=== PATIENT | female | born 1985 | race African-American/Black ===

== ENCOUNTER 2017-01-19 17:11 | Emergency (ER) | payer OTHER ==
[2017-01-19 17:20] VITALS: BP 110/69; PULSE 63; TEMP 97.8; BMI 25.0
--- NOTE | 2017-01-19 18:15 | PDOC ---
History of Present Illness - General Chief Complaint: Lightheaded Stated Complaint: WEAKNESS Time Seen by Provider: 01/19/17 17:35 History Source: Patient Exam Limitations: No Limitations - History of Present Illness Initial Comments: 01/19/17 18:21 My chief complaint: Intermittent headache, weakness, lightheadedness times one week History of present illness: Patient is a 31-year-old female with a history of fibroids and myomectomy 03/27 today complaining of intermittent temporal headache times one week with lightheadedness and generalized weakness intermittently. Patient reports having a headache earlier today for which she took acetaminophen at 12 noon, denies having headache presently. Patient reports feeling lightheaded when she stands up from a sitting or lying position intermittently times one week. Patient denies any fever, sore throat, cough, nausea vomiting or diarrhea. Patient does report having nasal congestion that was worse 2 weeks ago is slightly less presently with clear rhinorrhea. She denies any recent travel or any sick contacts. Patient reports that she works nights and comes home and sleeps for only 4 hours which is usual for her. 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 Patient denies any palpitations or any shortness of breath. She reports that her menstrual cycle is not heavy like before and she just finished it yesterday was for 3 days only. Patient to think that she is due to having her menstrual cycle is not on control. 01/19/17 18:28 01/19/17 18:29 01/19/17 18:32 Timing/Duration: 1 week (intermittent lightheadedness, headache b/l frontal, weakness intermittent) Severity: mild Associated Symptoms: reports: headaches (intermittent headache temporal, none now ), other (nasal congestion, weakness, lightheadedness) Past History - Past Medical History Allergies/Adverse Reactions: Allergies Allergy/AdvReac Type Severity Reaction Status Date / Time oxycodone HCl Allergy Mild Itching Verified 01/19/17 17:21 [From Roxicodone] mushroom Allergy Verified 01/19/17 17:21 Home Medications: Ambulatory Orders Cholecalciferol (Vitamin D3) [Vitamin D] 1,000 unit PO DAILY 04/02/16 Multivit with Iron-Minerals [Compete] 1 each PO DAILY 04/02/16 Fexofenadine HCl [Nicole Allergy] 180 mg PO DAILY #10 tablet 01/19/17 Fluticasone Prop 0.05% Nasal [Flonase] 2 spray NS DAILY #1 spraybtl 01/19/17 Anemia: No Asthma: No Cancer: No Cardiac Disorders: No CVA: No COPD: No CHF: No Dementia: No Diabetes: No GI Disorders: No Disorders: No HTN: No Hypercholesterolemia: No Liver Disease: No Seizures: No Thyroid Disease: No Other medical history: DENIES - Immunization History Immunization Up to Date: Yes - Psycho/Social/Smoking Cessation Hx Anxiety: No Suicidal Ideation: No Smoking History: Never smoked Have you smoked in the past 12 months: No Hx Alcohol Use: No Drug/Substance Use Hx: No Substance Use Type: None Hx Substance Use Treatment: No Review of Systems - Review of Systems Able to Perform ROS?: Yes Constitutional: Yes: Weakness (intermittent ) HEENTM: Yes: Nose Congestion Respiratory: No: Symptoms reported Cardiac (ROS): Yes: Lightheadedness ABD/GI: No: Symptoms Reported : No: Symptoms Reported Musculoskeletal: No: Symptoms Reported Integumentary: No: Symptoms Reported Neurological: Yes: Headache (intermittent temporal b/l headache daily for one week ) *Physical Exam - Vital Signs Last Vital Signs Temp Pulse Resp BP Pulse Ox 97.8 F 63 16 110/69 100 01/19/17 17:12 01/19/17 17:12 01/19/17 17:12 01/19/17 17:12 01/19/17 17:12 - Physical Exam General Appearance: Yes: Appropriately Dressed HEENT: positive: EOMI, CAMILO, Nasal Congestion (b/l edema of superior turbinates rt. greater than left ). negative: Pharyngeal Erythema, Tonsillar Exudate, Tonsillar Erythema Neck: negative: Lymphadenopathy (R), Lymphadenopathy (L) Respiratory/Chest: positive: Lungs Clear, Normal Breath Sounds. negative: Chest Tender, Respiratory Distress Cardiovascular: positive: Regular Rhythm, Regular Rate, S1, S2 Gastrointestinal/Abdominal: positive: Normal Bowel Sounds, Soft. 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 negative: Numbness, Sensory Deficit ED Treatment Course - LABORATORY CBC & Chemistry Diagram: 01/19/17 18:00 01/19/17 18:00 Medical Decision Making - Medical Decision Making 01/19/17 18:32 Patient is a 31-year-old female with a history of fibroids and myomectomy 03/27 with normocytic anemia here today complaining of intermittent temporal headache times one week with lightheadedness and generalized weakness intermittently. Patient reports having a headache earlier today for which she took acetaminophen at 12 noon, denies having headache presently. Patient reports feeling lightheaded when she stands up from a sitting or lying position intermittently times one week. Patient denies any fever, sore throat, cough, nausea vomiting or diarrhea. Patient does report having nasal congestion that was worse 2 weeks ago is slightly less presently with clear rhinorrhea. She denies any recent travel or any sick contacts. Patient reports that she works nights and comes home and sleeps for only 4 hours which is usual for her. 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 Patient denies any palpitations or any shortness of breath. She reports that her menstrual cycle is not heavy like before and she just finished it yesterday was for 3 days only. Patient to think that she is due to having her menstrual cycle is not on control. 01/19/17 18:28 01/19/17 18:34 r/o worsening anemia Nasal Congestion PLAN: cbc with diff bmp urine hcg 01/19/17 18:36 01/19/17 18:51 Laboratory Tests 01/19/17 01/19/17 01/19/17 18:00 18:00 18:00 WBC 3.0 L D RBC 4.43 Hgb 12.1 D Hct 38.1 D MCV 85.9 MCHC 31.9 L RDW 13.4 Plt Count 154 D MPV 10.6 Neutrophils % 39.2 L Lymphocytes % 43.8 H Monocytes % 8.2 Eosinophils % 7.8 H Basophils % 1.0 Sodium 141 Potassium 4.0 Chloride 104 Carbon Dioxide 28 Anion Gap 9 BUN 13 D Creatinine 0.7 Random Glucose 79 Calcium 9.3 Urine HCG, Qual Negative 01/19/17 18:56 leukopenia has been chronic will discharge to home on nicole 180 mg daily for 10 days flonase 2 sprays each nostril for 10 days 01/19/17 23:10 01/19/17 23:11 *DC/Admit/Observation/Transfer Diagnosis at time of Disposition: Nasal congestion Headache Qualifiers: Headache type: unspecified Headache chronicity pattern: acute headache Intractability: not intractable Qualified Code(s): R51 - Headache - Discharge Dispostion Disposition: HOME Condition at time of disposition: Stable - Prescriptions Prescriptions: Fexofenadine HCl [Nicole Allergy] 180 mg PO DAILY #10 tablet Fluticasone Prop 0.05% Nasal [Flonase] 2 spray NS DAILY #1 spraybtl - Referrals Referrals: Hilda Seo MD [Primary Care Provider] - Alvarez Shirley MD [Staff Physician] - - Patient Instructions Additional Instructions: follow up With ear nose and throat Dr. Shirley if symptoms persist More rest and follow-up with your primary care provider next week Return to emergency room if symptoms worsen or new symptoms develop Patient voiced understanding of discharge instructions and all questions were answered
[2017-01-19 18:20] LABS: EOSINOPHIL 7.8 % (0-4.5); MCH 27.4 pg (25.7-33.7); MCHC 31.9 g/dl (32.0-36.0); MEAN CELL VOLUME 85.9 fl (80-96); MEAN PLT VOLUME 10.6 fl (7.5-11.1); NEUTROPHILS 39.2 % (42.8-82.8); PLATELET COUNT 154 K/MM3 (134-434); RDW 13.4 % (11.6-15.6)
[2017-01-19 18:40] LABS: CALCIUM 9.3 mg/dL (8.5-10.1); COCKROFT - GAULT 132.1835; CREATININE 0.7 mg/dL (0.55-1.02)
[2017-01-19 18:53] LABS: PLATELET ESTIMATE ADEQUATE (NORMAL)
== END 2017-01-19 19:11 | disposition home or self-care (01) ==
LOC: JERFT 17:11
DX: R09.89 Other specified symptoms and signs involving the circulatory and respiratory systems (principal); R51 Headache
CPT/HCPCS: 36415; 80048; 84703; 85025; 99281-25

== ENCOUNTER 2017-08-17 18:17 | Emergency (ER) | payer OTHER ==
[2017-08-17 18:23] VITALS: BP 99/63; PULSE 77; TEMP 98.1; BMI 26.2
--- NOTE | 2017-08-17 19:04 | PDOC ---
History of Present Illness - General Chief Complaint: Cold Symptoms Stated Complaint: 19 wks preg COUGHING Time Seen by Provider: 08/17/17 18:39 - History of Present Illness Initial Comments: 08/17/17 18:50 CHIEF COMPLAINT: cough, fever HISTORY OF PRESENT ILLNESS: 31 yo 19 week F with no significant PMH presents to fast track with cough and fever x 2 days. Patient denies sore throat , vomiting, diarrhea, abdominal pain, vaginal bleeding. PAST MEDICAL HISTORY: Denies past medical history FAMILY HISTORY: Denies SOCIAL HISTORY: Denies tobacco, alcohol, illicit drug use. SURGICAL HISTORY: Denies ALLERGIES: oxycodone, mushroom REVIEW OF SYSTEMS General/Constitutional: Denies fever or chills. Denies weakness. HEENT: Denies change in vision. Denies ear pain or discharge. Denies sore throat. Cardiovascular: Denies chest pain or shortness of breath. Respiratory: "I'm coughing a lot." Denies wheezing, or hemoptysis. Gastrointestinal: Denies nausea, vomiting, diarrhea. Genitourinary: Denies dysuria, frequency, or change in urination. Musculoskeletal: Denies joint or muscle swelling or pain. Denies neck or back pain. Skin and breasts: Denies rash or easy bruising. PHYSICAL EXAM General Appearance: Well-appearing, appropriately dressed. No apparent distress , no intoxication. HEENT: EOMI, PERRLA, normal ENT inspection, normal voice, TMs normal, pharynx normal. No conjunctival pallor. No photophobia, scleral icterus. Neck: Supple. Trachea midline. No tenderness, rigidity, carotid bruit, stridor , lymphadenopathy, or thyromegaly. Respiratory/Chest: Lungs CTAB. No shortness of breath, chest tenderness, respiratory distress, accessory muscle use. No crackles, rales, rhonchi, stridor , wheezing, dullness Cardiovascular: RRR. S1, S2. No JVD, murmur, bradycardia, tachycardia. Gastrointestinal/Abdominal: Normal bowel sounds. Abdomen soft, non-distended. No tenderness or rebound tenderness. No organomegaly, pulsatile mass, guarding , hernia, hepatomegaly, splenomegaly. Musculoskeletal/Extremities: Normal inspection. FROM of all extremities, normal capillary refill. Pelvis Stable. No CVA tenderness. No tenderness to extremities, pedal edema, swelling, erythema or deformity. Integumentary: Appropriate color, dry, warm. 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 Fully oriented, alert. Appropriate mood/affect. Motor strength 5/5. No appreciable EOM palsy, facial droop or sensory deficit. Past History - Past Medical History Allergies/Adverse Reactions: Allergies Allergy/AdvReac Type Severity Reaction Status Date / Time oxycodone HCl Allergy Mild Itching Verified 08/17/17 18:18 [From Roxicodone] mushroom Allergy Verified 08/17/17 18:18 Home Medications: Ambulatory Orders Multivit with Iron,Minerals [Compete] 1 each PO DAILY 04/02/16 Anemia: No Asthma: No Cancer: No Cardiac Disorders: No CVA: No COPD: No CHF: No Dementia: No Diabetes: No GI Disorders: No Disorders: No HTN: No Hypercholesterolemia: No Liver Disease: No Seizures: No Thyroid Disease: No - Immunization History Immunization Up to Date: Yes - Suicide/Smoking/Psychosocial Hx Smoking History: Never smoked Have you smoked in the past 12 months: No Information on smoking cessation initiated: No Hx Alcohol Use: No Drug/Substance Use Hx: No Substance Use Type: None Hx Substance Use Treatment: No *Physical Exam - Vital Signs Last Vital Signs Temp Pulse Resp BP Pulse Ox 98.1 F 77 18 99/63 100 08/17/17 18:19 08/17/17 18:19 08/17/17 18:19 08/17/17 18:19 08/17/17 18:19 Medical Decision Making - Medical Decision Making 08/17/17 19:04 31 yo 19 week F with no significant PMH presents to fast track with cough and fever x 2 days. -flu swab *DC/Admit/Observation/Transfer Diagnosis at time of Disposition: Viral syndrome - Discharge Dispostion Disposition: HOME Condition at time of disposition: Stable Admit: No - Referrals Referrals: Aaron Jolley MD [Primary Care Provider] - - Patient Instructions Printed Discharge Instructions: DI for Viral Upper Respiratory Infection -- Adult Additional Instructions: Please continue to take Tylenol and Robitussin for your symptoms. You may also try taking Vitamin C supplements to help increase your recovery time. Be sure to drink plenty of fluids and get lots of rest!! If you develop any vaginal bleeding or unusual discharge, abdominal pain, or any new or worsening symptoms , please return to the ER. - Post Discharge Activity Forms/Work/School Notes: Back to Work
== END 2017-08-17 20:05 | disposition home or self-care (01) ==
LOC: JERFT 18:17
DX: O99.89 Other specified diseases and conditions complicating pregnancy, childbirth and the puerperium (principal); J06.9 Acute upper respiratory infection, unspecified; Z3A.19 19 weeks gestation of pregnancy
CPT/HCPCS: 87804; 99281-25

== ENCOUNTER 2017-12-16 12:00 | Inpatient (IN) | payer OTHER ==
[2017-12-26] MEDS ORDERED: CITRIC ACID/SODIUM CITRATE 30 ML UNIT-DOSE CUP PO ONE (09:00)
[2017-12-26] MEDS ORDERED: ELECTROLYTE-148 SOLN 1,000 ML IV ONE (09:00)
[2017-12-26 09:18] VITALS: BMI 28.3
[2017-12-26] MEDS ORDERED: ELECTROLYTE-148 SOLN 1,000 ML IV SCH ×2 (10:00→11:30)
[2017-12-26] MEDS ORDERED: ceFAZolin SODIUM 1 GM VIAL ONE (10:07)
[2017-12-26] MEDS ORDERED: morphine SULFATE/Preservative Free 0.5 MG/ML (1cc Syringe) ONE (10:07)
[2017-12-26] MEDS ORDERED: ePHEDrine SULFATE 50 MG/1 ML AMPULE ONE (10:07)
[2017-12-26] MEDS ORDERED: OXYTOCIN 20 UNITS in 0.9% NS 40 UNIT/2,000 ML INFUS.BAG IV ONE (10:13)
--- NOTE | 2017-12-26 10:32 | HP ---
Past Medical History - Primary Care Physician PCP:: Selina Kunz - Admission Chief Complaint: Previous Myomectomy History of Present Illness: 32yo EDC 01/08/18 ega 38 week with previous myomectomy for primary section no ROM bleeding + afm no HAS History Source: Patient Limitations to Obtaining History: No Limitations - Past Medical History ...: 2 ...Para: 0 ...Term: 0 ...: 0 ...Spon : 1 ...Induced : 0 ...Multiple Gestation: 0 ...LMP: 04/03/17 ... Weeks Gestation by Dates: 38.1 ...EDC by Dates: 01/08/18 ...EDC by Sono: 12/26/17 - Past Surgical History Hx Myomectomy: No Hx Transabdominal Cerclage: No Additional Surgical History: Abdominal myomectomy - Smoking History Smoking history: Never smoked Have you smoked in the past 12 months: No - Alcohol/Substance Use Hx Alcohol Use: No History of Substance Use: reports: None - Social History Usual Living Arrangement: Yes: With Spouse Home Medications - Allergies Allergies/Adverse Reactions: Allergies Allergy/AdvReac Type Severity Reaction Status Date / Time oxycodone HCl Allergy Mild Itching Verified 12/26/17 09:01 [From Roxicodone] mushroom Allergy Verified 12/26/17 09:01 - Home Medications Home Medications: Ambulatory Orders Ferrous Sulfate 325 mg PO DAILY 12/26/17 Vitamins (Sjr) - 1 tab PO DAILY 12/26/17 Review of Systems - Review of Systems Constitutional: reports: No Symptoms Eyes: reports: No Symptoms HENT: reports: No Symptoms Neck: reports: No Symptoms Cardiovascular: reports: No Symptoms Respiratory: reports: No Symptoms Gastrointestinal: reports: No Symptoms Genitourinary: reports: No Symptoms Breasts: reports: No Symptoms Reported Musculoskeletal: reports: No Symptoms Integumentary: reports: No Symptoms Neurological: reports: No Symptoms Endocrine: reports: No Symptoms Hematology/Lymphatic: reports: No Symptoms Psychiatric: reports: No Symptoms Physical Exam - Maternity Vital Signs: Vital Signs Temperature 98.2 F 12/26/17 08:30 Pulse Rate 79 12/26/17 08:30 Respiratory Rate 20 12/26/17 08:30 Blood Pressure 107/70 12/26/17 08:30 O2 Sat by Pulse Oximetry (%) Constitutional: Yes: Well Nourished, No Distress Cardiovascular: Yes: WNL Lungs: Clear to auscultation Breast(s): Yes: WNL - Abdominal Exam/OB Fundal Height: 38 Number of Fetuses: Single Presentation: Vertex Contractions: No Monitor Mode: External Category: I Accelerations: Non-Uniform Decelerations: None - Vaginal Exam/OB Vaginal Bleediing: No Dilatation (cm): closed Amniotic Membrane Status: Intact Presentation: Vertex/Position - Physical Exam Musculoskeletal: Yes: WNL Psychiatric: Yes: WNL, Alert, Oriented Hemorrhage Risk Assessment - Risk Factors Medium Risk Factors: Yes: Prior , uterine surgery,or multiple laparotomies Risk Score: 1 Risk Level: Medium Risk Problem List - Problems (1) History of myomectomy Code(s): Z98.890 - OTHER SPECIFIED POSTPROCEDURAL STATES (2) 38 weeks gestation of Code(s): Z3A.38 - 38 WEEKS GESTATION OF Assessment/Plan Previous myomectomy IUP at 38 week Cat 1 Plan Section
[2017-12-26] MEDS ORDERED: DEXAMETHASONE SOD PHOSPHATE 4 MG/1 ML VIAL ONE (10:39)
[2017-12-26] MEDS ORDERED: KETOROLAC TROMETHAMINE 30 MG/1 ML VIAL ONE (10:39)
[2017-12-26] MEDS ORDERED: OXYTOCIN 10 UNITS/ML VIAL ONE ×2 (10:42→10:46)
[2017-12-26] MEDS ORDERED: MIDAZOLAM HCL 2 MG/2 ML SINGLE DOSE VIAL ONE (10:52)
[2017-12-26] MEDS ORDERED: TUBERCULIN PPD 5 TU/0.1ML SYRINGE (IN PATIENT USE ONLY) ID ONE (11:00)
[2017-12-26] MEDS ORDERED: METHYLERGONOVINE MALEATE 0.2 MG/1 ML AMP IM PRN (11:23)
--- NOTE | 2017-12-26 11:23 | OP ---
Operative Note - Note: Operative Date: 12/26/17 Pre-Operative Diagnosis: Previous Myomectomy. IUP at 40 weeks by usg Operation: Primary low transverse Section Findings: live female infant Post-Operative Diagnosis: Same as Pre-op Surgeon: Selina Kunz Home Health Nurse: Sid Stark Anesthesia: Spinal Specimens Removed: placenta Estimated Blood Loss (mls): 600 Operative Report Dictated: Yes
[2017-12-26 11:30] LABS: VENOUS PH 7.41 (7.32-7.42)
[2017-12-26] MEDS ORDERED: OXYTOCIN 20 UNITS in 0.9% NS 20 UNIT/1,000 ML INFUS.BAG IV SCH (11:30)
--- NOTE | 2017-12-26 11:30 | OP ---
DATE OF OPERATION: 12/26/2017 PREOPERATIVE DIAGNOSIS: Previous myomectomy at 38 weeks. OPERATION: Low transverse section. POSTOPERATIVE DIAGNOSIS: Live female , previous myomectomy at 38 weeks. SURGEON: Anselmo Trinh MD EXPLOSIVES DETONATOR: SILVIA Quiroga. unavailable. ANESTHESIA: Spinal. ANESTHESIOLOGIST: Anabela Mendoza MD ESTIMATED BLOOD LOSS: 600 mL. DESCRIPTION OF PROCEDURE: The patient was taken to the operating room and placed in supine position, prepped and draped in the usual sterile fashion after spinal anesthesia and Palma catheter had been inserted. Previous scar was then removed with a scalpel using a Pfannenstiel skin incision. Cautery was then used to go through layers of the abdominal wall to the level of the fascia. Fascia was cut in the midline. Cautery was then used to open the fascia in a smiling fashion. Kochers were then used to bluntly and sharply dissect the rectus muscles off the fascia. Muscles were split in the midline, and peritoneal cavity was then entered and carried upward and downward. Bladder retractor was then placed, and scalpel was then used to make a low transverse uterine incision. Incision was carried upward using bandage scissors. A live female infant was delivered in OT position. Nose and mouth suction performed. Shoulders were delivered without difficulty. Cord was clamped and cut. Cord blood obtained. Cord pH obtained. The was handed to the signal tower director. Placenta was manually extracted from the uterus. Uterus was exteriorized and cleaned with clean laparotomy pads. Uterine incision then closed using 0 Biosyn suture 1st layer continuous and locking, 2nd layer imbricating the 1st layer. Hemostasis achieved using [id number] sutures. Uterus interiorized. Tubes and ovaries noted to be normal. Abdominal sweep done. Abdominal cavity cleaned with clean lap pads. Peritoneum closed using 0 Biosyn suture. Fascia was then closed using 0 Vicryl suture in 2 parts. Muscle was approximated using 0 Vicryl suture. The subcutaneous was then closed using 0 Vicryl suture. The skin was then closed using 3-0 Vicryl in subcuticular fashion. The wound was washed and dressed. The patient tolerated the procedure well. Steri-Strips placed. ANSELMO TRINH M.D. MIKE/[id number] MTDD
[2017-12-26 11:31] LABS: VENOUS PC02 41.9 mmHg (38-52); VENOUS PO2 32.6 mmHg (28-48)
[2017-12-26] MEDS ORDERED: ONDANSETRON 4 MG/2 ML VIAL IVPUSH PRN (11:32)
[2017-12-26] MEDS ORDERED: IBUPROFEN 800 MG/8 ML IJ IVPB ONE (13:00)
[2017-12-26] MEDS: IBUPROFEN 800 MG/8 ML IJ IVPB PRN (13:05)
[2017-12-26] MEDS ORDERED: oxyCODONE HCL 5 MG TABLET PO PRN ×2 (13:29→13:30)
[2017-12-26 21:41] LABS: ARTERIAL BLOOD GAS PCO2 50.9 mmHg (35-45); ARTERIAL BLOOD GAS pH 7.33 (7.35-7.45)
[2017-12-26 21:42] LABS: ARTERIAL BLOOD GAS BASE EXCESS -0.4 meq/l (-2-2)
[2017-12-26 21:44] LABS: ARTERIAL BLD GAS O2 SATURATION 38.3 % (90-98.9); ARTERIAL BLOOD GAS PO2 19.9 mmHg (80-100)
[2017-12-27] MEDS: IBUPROFEN 800 MG/8 ML IJ IVPB PRN (03:43)
[2017-12-27 07:32] LABS: BASO % 0.2 % (0-2.0); EOS % 0.8 % (0-4.5); HEMATOCRIT 30.1 % (32.4-45.2); HEMOGLOBIN 10.3 GM/dL (10.7-15.3); LYMPH % 14.2 % (8-40); MCH 30.1 pg (25.7-33.7); MCHC 34.3 g/dl (32.0-36.0); MEAN CELL VOLUME 87.8 fl (80-96); MEAN PLT VOLUME 9.8 fl (7.5-11.1); MONO % 5.3 % (3.8-10.2); NEUT % 79.5 % (42.8-82.8); PLATELET COUNT 136 K/MM3 (134-434); RBC 3.43 M/mm3 (3.60-5.2); RDW 13.6 % (11.6-15.6); WHITE BLOOD COUNT 7.3 K/mm3 (4.0-10.0)
--- NOTE | 2017-12-27 08:29 | PN ---
Progress Note (short form) - Note Progress Note: Anesthesia postop note 32 y/o F s/p spinal anesthesia/duramorph for section POD#1, vss, aaox3, ambulated earlier, pain fairly well controlled. No anesthesia complications.
[2017-12-27] MEDS: HYDROmorphone HCL 2 MG TABLET PO PRN ×3 (09:00→21:45)
[2017-12-27] MEDS: SIMETHICONE 80 MG TAB.CHEW (FP) PO PRN ×3 (09:00→21:44)
[2017-12-27] MEDS ORDERED: DIPHTH,PERTUSS(ACELL),TET 0.5 ML DISP.SYRIN IM ONE (10:00)
[2017-12-27] MEDS ORDERED: BISACODYL 10 MG SUPP.RECT RC PRN (11:23)
[2017-12-27] MEDS ORDERED: oxyCODONE HCL 5 MG TABLET PO PRN ×2 (11:23)
[2017-12-27] MEDS: IBUPROFEN 600 MG TABLET (FP) PO PRN (14:49)
--- NOTE | 2017-12-27 15:17 | PN ---
Progress Note (SOAP) - Subjective Chief Complaint: Pt with c/o of pain and gas pain - Current Medications Current Medications: Active Medications Bisacodyl (Dulcolax Suppository -) 10 mg RC PRN PRN PRN Reason: CONSTIPATION Diphenhydramine HCl (Benadryl Injection -) 25 mg IVPUSH Q4H PRN PRN Reason: Pruritis Last Admin: 12/26/17 16:51 Dose: 25 mg Hydromorphone HCl (Dilaudid -) 2 mg PO Q4H PRN PRN Reason: PAIN 7-10 Last Admin: 12/27/17 13:13 Dose: 2 mg Parenteral Electrolytes (Plasma-Lyte 148 -) 1,000 mls @ 125 mls/hr IV [facility] Last Admin: 12/26/17 09:55 Dose: 125 mls/hr Oxytocin/Sodium Chloride (Normal Saline+20 Units Oxytocin -) 20 unit in 1,000 mls @ 125 mls/hr IV [facility] Last Admin: 12/26/17 14:04 Dose: 125 mls/hr Parenteral Electrolytes (Plasma-Lyte 148 -) 1,000 mls @ 125 mls/hr IV [facility] Last Admin: 12/26/17 12:37 Dose: Not Given Ibuprofen (Motrin -) 600 mg PO Q4H PRN PRN Reason: PAIN LEVEL 1 - 3 Last Admin: 12/27/17 14:49 Dose: 600 mg Ibuprofen (Caldolor Injection -) 800 mg IVPB Q8H PRN PRN Reason: PAIN GREATER THAN 5 Last Admin: 12/27/17 03:43 Dose: 800 mg Methylergonovine Maleate (Methergine Injection -) 0.2 mg IM Q4H PRN PRN Reason: Excessive Bleeding (L&D) Ondansetron HCl (Zofran Injection) 4 mg IVPUSH Q4H PRN PRN Reason: NAUSEA Oxycodone HCl (Roxicodone -) 5 mg PO Q4H PRN PRN Reason: PAIN LEVEL 4 - 6 Oxycodone HCl (Roxicodone -) 10 mg PO Q4H PRN PRN Reason: PAIN LEVEL 7 - 10 Simethicone (Mylicon -) 80 mg PO Q4H PRN PRN Reason: GAS Last Admin: 12/27/17 13:14 Dose: 80 mg - Objective Vital Signs: Vital Signs Temperature 98.5 F 12/27/17 10:00 Pulse Rate 80 12/27/17 10:00 Respiratory Rate 20 12/27/17 10:00 Blood Pressure 99/55 12/27/17 10:00 O2 Sat by Pulse Oximetry (%) 100 12/26/17 12:15 Constitutional: Yes: Well Nourished, No Distress Respiratory: Yes: WNL, Regular, CTA Bilaterally Gastrointestinal: Yes: WNL, Normal Bowel Sounds ....Post : Yes: Uterus firm, Uterus non-tender Musculoskeletal: Yes: WNL Extremities: Yes: WNL Edema: Yes Wound/Incision: Yes: Clean/Dry, Well Approximated Labs Lab Results: CBC, BMP 12/27/17 07:06 Problem List - Problems (1) History of myomectomy Code(s): Z98.890 - OTHER SPECIFIED POSTPROCEDURAL STATES Assessment/Plan Previous myomectomy POD 1 Plan Dilaudid demerol
[2017-12-27] MEDS ORDERED: MEPERIDINE HCL CARPU-JECT 50 MG/1 ML DISP.SYRIN IM PRN (15:19)
[2017-12-28] MEDS: HYDROmorphone HCL 2 MG TABLET PO PRN ×4 (03:24→20:28)
[2017-12-28] MEDS: SIMETHICONE 80 MG TAB.CHEW (FP) PO PRN ×3 (03:25→20:28)
[2017-12-28] MEDS: IBUPROFEN 600 MG TABLET (FP) PO PRN (06:03)
[2017-12-28] MEDS ORDERED: BENZOIN 118 ML SPRAY.PUMP TP ONE (08:22)
--- NOTE | 2017-12-28 08:35 | PN ---
Post Progress Note - Subjective Subjective: c/o hemorroidal pain and incisional discomfort Post Day: 2 Type of Delivery: Primary C/S Vital Signs: Vital Signs Temperature 98.0 F 12/28/17 05:59 Pulse Rate 70 12/28/17 05:59 Respiratory Rate 20 12/28/17 05:59 Blood Pressure 110/64 12/28/17 05:59 O2 Sat by Pulse Oximetry (%) 100 12/26/17 12:15 Breast Exam: Yes: Soft Uterus: Yes: Fundus Firm Incision: Yes: Dressing dry and intact Abdomen/GI: Yes: Abdomen soft Lochia: Yes: Serosa Lochia, amount: Moderate Extremities: Yes: Calves non-tender Perineum: Yes: Intact Activity: Ambulating - Labs Labs: CBC WBC 7.3 K/mm3 (4.0-10.0) D 12/27/17 07:06 RBC 3.43 M/mm3 (3.60-5.2) L 12/27/17 07:06 Hgb 10.3 GM/dL (10.7-15.3) L D 12/27/17 07:06 Hct 30.1 % (32.4-45.2) L D 12/27/17 07:06 MCV 87.8 fl (80-96) 12/27/17 07:06 MCH 30.1 pg (25.7-33.7) 12/27/17 07:06 MCHC 34.3 g/dl (32.0-36.0) 12/27/17 07:06 RDW 13.6 % (11.6-15.6) 12/27/17 07:06 Plt Count 136 K/MM3 (134-434) 12/27/17 07:06 MPV 9.8 fl (7.5-11.1) D 12/27/17 07:06 Neutrophils % 79.5 % (42.8-82.8) 12/27/17 07:06 Lymphocytes % 14.2 % (8-40) D 12/27/17 07:06 Monocytes % 5.3 % (3.8-10.2) 12/27/17 07:06 Eosinophils % 0.8 % (0-4.5) 12/27/17 07:06 Basophils % 0.2 % (0-2.0) 12/27/17 07:06 Assessment/Plan hemorroidal inflammatio gas oain pain management continue post care
[2017-12-28] MEDS: FERROUS SO4 325 MG TABLET (FP) PO SCH (10:14)
[2017-12-28] MEDS: PRENATAL VITAMINS W/ FOLIC ACID TABLET (FP) PO SCH (10:14)
[2017-12-28] MEDS ORDERED: BENZOCAINE 28 GM HEMORRHOIDAL OINTMENT TP PRN (12:28)
[2017-12-28] MEDS: BENZOCAINE 20% 57 GM BOTTLE TP PRN (13:47)
[2017-12-29] MEDS: IBUPROFEN 600 MG TABLET (FP) PO PRN ×2 (00:12→09:38)
[2017-12-29 08:49] LABS: BASO % 0.5 % (0-2.0); HEMATOCRIT 30.8 % (32.4-45.2); HEMOGLOBIN 10.3 GM/dL (10.7-15.3); LYMPH % 21.4 % (8-40); MCH 29.5 pg (25.7-33.7); MCHC 33.4 g/dl (32.0-36.0); MEAN CELL VOLUME 88.3 fl (80-96); MEAN PLT VOLUME 9.6 fl (7.5-11.1); MONO % 7.4 % (3.8-10.2); NEUT % 67.7 % (42.8-82.8); PLATELET COUNT 178 K/MM3 (134-434); RBC 3.49 M/mm3 (3.60-5.2); WHITE BLOOD COUNT 4.4 K/mm3 (4.0-10.0)
[2017-12-29] MEDS: PRENATAL VITAMINS W/ FOLIC ACID TABLET (FP) PO SCH (09:37)
[2017-12-29] MEDS: SIMETHICONE 80 MG TAB.CHEW (FP) PO PRN ×2 (09:38→22:21)
[2017-12-29] MEDS: FERROUS SO4 325 MG TABLET (FP) PO SCH (09:39)
--- NOTE | 2017-12-29 09:54 | PN ---
Post Progress Note - Subjective Subjective: 32 yo status post delivery of a live , seen and evaluated. She continues to c/o abdominal pain despite Mylicon and supository. Post Day: 3 Type of Delivery: Primary C/S Vital Signs: Vital Signs Temperature 99.1 F 12/29/17 08:32 Pulse Rate 90 12/29/17 08:32 Respiratory Rate 20 12/29/17 08:32 Blood Pressure 106/61 12/29/17 08:32 O2 Sat by Pulse Oximetry (%) 100 12/26/17 12:15 Breast Exam: Yes: Soft Uterus: Yes: Other (Mildly distented) Incision: Yes: Sutures intact Abdomen/GI: Yes: Abdomen soft, Abdominal Distention Lochia: Yes: Rubra Lochia, amount: Small Extremities: Yes: Calves non-tender Perineum: Yes: Intact Activity: Other (She's lying in bed) - Labs Labs: CBC WBC 4.4 K/mm3 (4.0-10.0) D 12/29/17 08:00 RBC 3.49 M/mm3 (3.60-5.2) L 12/29/17 08:00 Hgb 10.3 GM/dL (10.7-15.3) L 12/29/17 08:00 Hct 30.8 % (32.4-45.2) L 12/29/17 08:00 MCV 88.3 fl (80-96) 12/29/17 08:00 MCH 29.5 pg (25.7-33.7) 12/29/17 08:00 MCHC 33.4 g/dl (32.0-36.0) 12/29/17 08:00 RDW 14.0 % (11.6-15.6) 12/29/17 08:00 Plt Count 178 K/MM3 (134-434) D 12/29/17 08:00 MPV 9.6 fl (7.5-11.1) 12/29/17 08:00 Neutrophils % 67.7 % (42.8-82.8) 12/29/17 08:00 Lymphocytes % 21.4 % (8-40) D 12/29/17 08:00 Monocytes % 7.4 % (3.8-10.2) 12/29/17 08:00 Eosinophils % 3.0 % (0-4.5) D 12/29/17 08:00 Basophils % 0.5 % (0-2.0) 12/29/17 08:00 Assessment/Plan Status post Abdomonal pain Abdominal Xray Continue Simethicone and analgesia
[2017-12-29] MEDS: HYDROmorphone HCL 2 MG TABLET PO PRN (11:25)
[2017-12-29] MEDS ORDERED: ACETAMINOPHEN 325 MG TABLET (FP) PO PRN (12:30)
[2017-12-29] MEDS ORDERED: SENNOSIDES 8.6MG TABLET (FP) PO ONE (12:33)
[2017-12-29] MEDS ORDERED: HYDROmorphone HCL 2 MG TABLET PO PRN (12:34)
[2017-12-29] MEDS ORDERED: MAGNESIUM CITRATE 300 ML BOTTLE PO ONE (12:34)
[2017-12-29] MEDS ORDERED: IBUPROFEN 600 MG TABLET (FP) PO PRN (12:35)
--- NOTE | 2017-12-29 12:35 | CONSULT ---
Consult Consult Specialty:: General Surgery Referred by:: Dee Villanueva Reason for Consultation:: abdominal pain, constipation, distention post c/s - History of Present Illness Chief Complaint: abdominal pain, constipation History of Present Illness: 32yo healthy F s/p scheduled 3d ago secondary to h/o myomectomy last year (first child), with h/o constipation, hemorrhoids, anemia, who has been increasingly constipated since delivery, with abdominal pain, distention, gas pains, and decreased appetite. was full-term, normal and baby girl healthy. AXR today showed copious stool and some gaseous distention in upper abdomen. Surgery consulted to r/o ileus/obstruction. Pt has been OOB and ambulating, though not much per nursing, and did manage a little bit of breakfast. No N/V, + passing gas, had small BM day before yesterday. Had suppository once, but keeps feeling like she might be ready to go, but it won't come out, and the pain starts epigastric then settles down into pelvis. She has also had some shoulder pain. She has been taking Dilaudid po for pain secondary to Oxycodone allergy (severe itching), but reports after the first postop day, she really only started needing it again when the pain got worse in her abdomen. She had been on PNV and iron supplements for anemia prior to delivery as well and used prune juice during to help with constipation. She does not tend to drink a lot of water/fluids. - History Source History Provided By: Patient Limitations to Obtaining History: No Limitations - Past Medical History Gastrointestinal: Yes: Constipation, Hemorrhoids Reproductive: Yes: Fibroids ...LMP: 03/30/ ...: No ...: 2 ...Para: 1 (3d 1st delivery) Heme/Onc: Yes: Anemia - Past Surgical History Additional Surgical History: Abdominal myomectomy - Alcohol/Substance Use Hx Alcohol Use: Yes (rarely (not while )) History of Substance Use: reports: None - Smoking History Smoking history: Never smoked Have you smoked in the past 12 months: No - Social History Usual Living Arrangement: With Spouse ADL: Independent Home Medications - Allergies Allergies/Adverse Reactions: Allergies Allergy/AdvReac Type Severity Reaction Status Date / Time oxycodone HCl Allergy Mild Itching Verified 12/26/17 09:01 [From Roxicodone] mushroom Allergy Verified 12/26/17 09:01 - Home Medications Home Medications: Ambulatory Orders Ferrous Sulfate 325 mg PO DAILY 12/26/17 Vitamins (Sjr) - 1 tab PO DAILY 12/26/17 Family Disease History - Family Disease History Family History: Unremarkable (noncontributory) Review of Systems - Review of Systems Constitutional: reports: Loss of Appetite. denies: Chills, Fever Eyes: denies: Blurred Vision, Recent Change in Vision HENT: reports: Nasal Congestion (recent cold - better now). denies: Difficult Swallowing, Throat Pain Neck: denies: Swollen Glands, Tenderness Cardiovascular: denies: Chest Pain (with abdominal pain only, secondary to gas pains), Palpitations Respiratory: denies: Cough, SOB Gastrointestinal: reports: Abdominal Pain (with hpi), Bloating, Constipation. denies: Diarrhea, Nausea, Vomiting Genitourinary: denies: Burning, Dysuria Musculoskeletal: reports: Back Pain (only in last few days). denies: Joint Pain , Muscle Pain Integumentary: reports: Incision (Pfannenstiel). denies: Change in Color, Rash Neurological: denies: Dizziness, Headache Physical Exam Vital Signs: Vital Signs Temperature 99.1 F 12/29/17 08:32 Pulse Rate 90 12/29/17 08:32 Respiratory Rate 20 12/29/17 08:32 Blood Pressure 106/61 12/29/17 08:32 O2 Sat by Pulse Oximetry (%) 100 12/26/17 12:15 Constitutional: Yes: Well Nourished, No Distress, Calm Eyes: Yes: Conjunctiva Clear, EOM Intact HENT: Yes: Atraumatic, Normocephalic Neck: Yes: Supple, Trachea Midline Cardiovascular: Yes: Regular Rate and Rhythm. No: Murmur Respiratory: Yes: Regular, CTA Bilaterally Gastrointestinal: Yes: Normal Bowel Sounds, Soft, Distention (mild tympany, ), Hernia (small reducible umbilical), Tenderness (diffuse, no R/G), Other (Pfannenstiel incision with steristrips) ...Rectal Exam: Yes: Hemorrhoids/External, Sphincter Tone Normal, Other (no stool palpable or on glove) Renal/: No: CVA Tenderness - Left, CVA Tenderness - Right Musculoskeletal: No: Joint Stiffness, Joint Swelling Extremities: No: Cool, Cyanosis Edema: Yes Edema: LLE: Trace, RLE: Trace Integumentary: Yes: Incision (Pfannenstiel with steristrips). No: Rash Wound/Incision: Yes: Clean/Dry, Well Approximated, Steri Strips, Open to air Neurological: Yes: Alert, Oriented. No: Unsteady Gait Labs: CBC, BMP 12/29/17 08:00 Imaging - Results X-ray: Report Reviewed, Image Reviewed (images personally reviewed - AXR with copious stool throughout colon, but gas in rectal vault area, some gaseous distention in upper abdomen, ?uterine shadow in pelvis) Problem List - Problems (1) Constipation due to opioid therapy Assessment/Plan: Patient with severe constipation, multifactorial - iron therapy, opioid use, less than adequate fluid intake Needs aggressive bowel regimen and to avoid narcotics Will start without enema because of hemorrhoids and empty rectal vault Senna and magnesium citrate now Stool softener tid Advised and encouraged liberal noncaffeinated fluid intake ok to use prune juice as well Alternating tylenol and ibuprofen for pain prn Avoid dilaudid if at all possible Once bowels are moving and most stool is evacuated, will need to continue softener TID at home can continue to use prune juice as well, and senna or dulcolax po prn at home too Code(s): K59.03 - DRUG INDUCED CONSTIPATION; T40.2X5A - ADVERSE EFFECT OF OTHER OPIOIDS, INITIAL ENCOUNTER (2) Disease of digestive system complicating puerperium Code(s): O99.63 - DISEASES OF THE DIGESTIVE SYSTEM COMPLICATING THE PUERPERIUM (3) Abdominal pain, generalized Code(s): R10.84 - GENERALIZED ABDOMINAL PAIN (4) Hemorrhoids, external without complications Assessment/Plan: ok to continue topical therapy for hemorrhoids - Prep H at home is fine Code(s): K64.4 - RESIDUAL HEMORRHOIDAL SKIN TAGS Assessment/Plan Thank you for the opportunity to participate in the care of this patient.
[2017-12-29] MEDS: DOCUSATE SODIUM 100 MG CAPSULE (FP) PO SCH ×2 (13:03→22:20)
[2017-12-30] MEDS: DOCUSATE SODIUM 100 MG CAPSULE (FP) PO SCH (06:19)
[2017-12-30 08:01] VITALS: BP 95/51; PULSE 72; TEMP 99
--- NOTE | 2017-12-30 08:02 | DS ---
Physical Exam-INSULATION ENGINEMAN Vital Signs: Vital Signs Temperature 98.7 F 12/29/17 22:00 Pulse Rate 78 12/29/17 22:00 Respiratory Rate 20 12/29/17 22:00 Blood Pressure 113/65 12/29/17 22:00 O2 Sat by Pulse Oximetry (%) 100 12/26/17 12:15 Constitutional: Yes: Well Nourished, No Distress Respiratory: Yes: WNL Gastrointestinal: Yes: WNL, Soft ....Post : Yes: Uterus firm, Uterus non-tender Musculoskeletal: Yes: WNL Extremities: Yes: WNL Edema: No Integumentary: Yes: WNL Wound/Incision: Yes: Clean/Dry, Well Approximated, Steri Strips, Open to air Neurological: Yes: WNL, Alert, Oriented Labs: CBC, BMP 12/29/17 08:00 Delivery - Delivery Section: Low Flap Transverse Type of Anesthesia: Spinal EBL (cc): 600 Delivery, Single - Stages of Labor Date of Delivery: 12/26/17 Time of Delivery: 10:44 Time Placenta Delivered: 10:46 Placenta: Yes: Spontaneous - Condition of Policy Officer/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 Present: Yes Name: Annamaria Maria Infant Gender: Female Weight: 7 lb 7 oz Total Hours ROM (Hrs/Mins): 3 minutes - 1 Minute Total Score: 9 5 Minutes Total Score: 9 - Feeding Plan Initial Plan: Exclusive throughout hospitalization Discharge Summary Reason For Visit: Current Active Problems 38 weeks gestation of (Acute) Abdominal pain, generalized (Acute) Constipation due to opioid therapy (Acute) Disease of digestive system complicating puerperium (Acute) Hemorrhoids, external without complications (Acute) History of myomectomy (Acute) Procedures: Principal: Primary Low transverse section Condition: Good - Instructions Diet, Activity, Other Instructions: Physical activity Resume your normal everyday activity as tolerated no heavy lifting or exercise until seen by your surgeon. You may walk unlimited dori of and climb stairs. You may resume driving the car when you feel safe and comfortable behind the wheel. No sexual activity as instructed. Wound care If you have a bandage, leave it on, and keep dry for 48-72 hours. After that time discard the outer bandage. If they are tapes on the skin under the out of bandage leave them in place. They will peel off in the next 7 to 10 days. Do Not Peel them off. You may shower the day after surgery. If there are tapes present on the skin, you may shower over them. Diet There are no dietary restrictions. Eat healthy, high-fiber foods. Drink 6 to 8 glasses of liquid each day. This will assist in keeping your bowels are regular. Pain management You may take Tylenol or acetaminophen or Ibuprofen (for example, Motrin, Advil etc.) from my pain prescription medication is ordered should be taken as prescribed for moderate to severe pain. Call MD for any of the following: Severe pain not relieved by medication Fever of 101 or higher Excessive bleeding or drainage on dressing Inability to urinate Disposition: HOME - Home Medications Comprehensive Discharge Medication List: Ambulatory Orders Ferrous Sulfate 325 mg PO DAILY 12/26/17 Vitamins (Sjr) - 1 tab PO DAILY 12/26/17 HYDROmorphone [Dilaudid -] 4 mg PO Q8H #21 tablet MDD 2 12/30/17 Shark Liver Oil/Brownwood Butter [Hemorrhoidal Suppositories] 1 each RC DAILY PRN # 20 supp.rect 12/30/17
[2017-12-30] MEDS: PRENATAL VITAMINS W/ FOLIC ACID TABLET (FP) PO SCH (09:16)
[2017-12-30] MEDS: FERROUS SO4 325 MG TABLET (FP) PO SCH (09:16)
[2017-12-30] MEDS: BENZOCAINE 20% 57 GM BOTTLE TP PRN (09:20)
--- NOTE | 2017-12-30 11:35 | PN ---
Progress Note, Physician History of Present Illness: Pt with constipation s/p . Had multiple bowel meds yesterday with good effect - per pt, has had more than 7 BMs and is feeling better. Still with some gas and distention, but much improved. Not using dilaudid anymore. Tolerating diet. - Current Medication List Current Medications: Active Medications Acetaminophen (Tylenol -) 650 mg PO Q6H PRN PRN Reason: PAIN LEVEL 4 - 6 Last Admin: 12/30/17 01:54 Dose: 650 mg Benzocaine (Americaine Ointment -) 1 applic TP PRN PRN PRN Reason: HEMORRHOIDS Last Admin: 12/28/17 13:44 Dose: 1 applic Benzocaine (Americaine 20% [place] -) 1 spray TP PRN PRN PRN Reason: HEMORRHOIDS Last Admin: 12/30/17 09:20 Dose: 1 spray Bisacodyl (Dulcolax Suppository -) 10 mg RC PRN PRN PRN Reason: CONSTIPATION Last Admin: 12/27/17 15:36 Dose: 10 mg Diphenhydramine HCl (Benadryl Injection -) 25 mg IVPUSH Q4H PRN PRN Reason: Pruritis Last Admin: 12/26/17 16:51 Dose: 25 mg Docusate Sodium (Colace -) 100 mg PO TID [facility] Last Admin: 12/30/17 06:19 Dose: 100 mg Ferrous Sulfate (Feosol -) 325 mg PO DAILY [facility] Last Admin: 12/30/17 09:16 Dose: 325 mg Hydromorphone HCl (Dilaudid -) 4 mg PO Q6H PRN PRN Reason: breakthrough pain 8-10 Oxytocin/Sodium Chloride (Normal Saline+20 Units Oxytocin -) 20 unit in 1,000 mls @ 125 mls/hr IV ASDIR [facility] Last Admin: 12/26/17 14:04 Dose: 125 mls/hr Parenteral Electrolytes (Plasma-Lyte 148 -) 1,000 mls @ 125 mls/hr IV ASDIR [facility] Last Admin: 12/26/17 12:37 Dose: Not Given Ibuprofen (Motrin -) 600 mg PO Q6H PRN PRN Reason: PAIN LEVEL 6-10 Methylergonovine Maleate (Methergine Injection -) 0.2 mg IM Q4H PRN PRN Reason: Excessive Bleeding (L&D) Ondansetron HCl (Zofran Injection) 4 mg IVPUSH Q4H PRN PRN Reason: NAUSEA Multivit/Folic Acid/Iron ( Vitamins (Sjr) -) 1 tab PO DAILY [facility] Last Admin: 12/30/17 09:16 Dose: 1 tab Simethicone (Mylicon -) 80 mg PO Q4H PRN PRN Reason: GAS Last Admin: 12/29/17 22:21 Dose: 80 mg - Objective Vital Signs: Vital Signs Temperature 99.0 F 12/30/17 07:20 Pulse Rate 72 12/30/17 07:20 Respiratory Rate 18 12/30/17 07:20 Blood Pressure 95/51 12/30/17 07:20 O2 Sat by Pulse Oximetry (%) 100 12/26/17 12:15 Constitutional: Yes: Well Nourished, No Distress, Calm Eyes: Yes: Conjunctiva Clear, EOM Intact HENT: Yes: Atraumatic, Normocephalic Gastrointestinal: Yes: Soft, Distention (some upper tympany), Hernia (small reducible umbilical), Tenderness (mild incisional and lower abdomen, no R/G) ...Rectal Exam: Yes: Deferred Extremities: No: Cool, Cyanosis Integumentary: Yes: Incision (with steris) Wound/Incision: Yes: Clean/Dry, Well Approximated, Steri Strips Neurological: Yes: Alert, Oriented. No: Unsteady Gait Labs: no new labs Problem List - Problems (1) Constipation due to opioid therapy Assessment/Plan: Patient with severe constipation, multifactorial - iron therapy, opioid use, less than adequate fluid intake Excellent result from meds yesterday Continue softener TID at home - can reduce if stools get too soft can continue to use prune juice as well, and senna or dulcolax po prn at home too pain control with alternating tylenol and ibuprofen - avoid narcotics Pt understands and agrees with plan Code(s): K59.03 - DRUG INDUCED CONSTIPATION; T40.2X5A - ADVERSE EFFECT OF OTHER OPIOIDS, INITIAL ENCOUNTER (2) Disease of digestive system complicating puerperium Code(s): O99.63 - DISEASES OF THE DIGESTIVE SYSTEM COMPLICATING THE PUERPERIUM (3) Abdominal pain, generalized Assessment/Plan: improved Code(s): R10.84 - GENERALIZED ABDOMINAL PAIN (4) Hemorrhoids, external without complications Code(s): K64.4 - RESIDUAL HEMORRHOIDAL SKIN TAGS
--- NOTE | 2018-01-03 16:59 | PATH ---
Surgical Pathology Report Patient Name: LINCOLN GUERRA Med. Rec. #: [id number] /Age/Gender: 1985 (Age: 32) / F Account: [id number] Location: 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 Specimen(s) Received PLACENTA Clinical History , SAB x1, previous myomectomy, history of fibroid uterus 38.3 weeks gestation Final Diagnosis PLACENTA, SECTION: 440 g THIRD TRIMESTER PLACENTA WITH TRIVASCULAR UMBILICAL CORD AND PLACENTAL MEMBRANES WITH RARE MECONIUM-LADEN MACROPHAGES. Electronically Signed Karina Soares M.D. Gross Description The specimen is received fresh labeled placenta and is a 440 gram, 16.5 x 15.0 x 3.4 cm. placenta with attached membranes and umbilical cord. The attached membranes are stearns, translucent with focal opacities and insert marginally. The umbilical cord measures 7 cm. in length and averages 1 cm. in diameter. The cord inserts eccentrically, 2 cm. to the nearest margin. No true knots or strictures are identified. Cut surface of the umbilical cord reveals 3 vessels. The surface is mcmahon-blue with minimal fibrin deposition and appropriate caliber vessels. The maternal surface is red-brown with focal defects. Sectioning reveals red-brown, spongy parenchyma. No lesions are identified. Keg Varnisher sections are submitted in three cassettes as follows: 1- membrane rolls and umbilical cord; 2-3- full thickness sections of placenta. /01/02/2018 [facility]01/02/2018
== END 2017-12-30 11:40 | disposition home or self-care (01) | DRG 766 ==
LOC: JLDR 12-26 08:30 → J3W 12-26 14:30
PROVIDERS: ADMIT Obstetrics & Gynecology; ATTEND Obstetrics & Gynecology
PROC: 10D00Z1 Extraction of Products of Conception, Low, Open Approach (ICD-10-PCS; principal; 2017-12-26)
DX: O22.43 Hemorrhoids in pregnancy, third trimester (principal); O99.63 Diseases of the digestive system complicating the puerperium; K59.03 Drug induced constipation; R10.84 Generalized abdominal pain; T40.2X5A Adverse effect of other opioids, initial encounter; Z3A.38 38 weeks gestation of pregnancy; Z37.0 Single live birth
CPT/HCPCS: 36415; 36600; 74019-TC-FY; 82803; 85025; 90715

== ENCOUNTER 2018-03-09 21:49 | Emergency (ER) | payer SELFPAY ==
[2018-03-09 22:07] VITALS: BMI 29.7
--- NOTE | 2018-03-09 23:59 | PDOC ---
History of Present Illness <Zainab Alicia - Last Filed: 03/10/18 01:16> - General History Source: Patient Exam Limitations: No Limitations - History of Present Illness Initial Comments: 03/09/18 23:39 Yary Tyson is a 32 year old female with a history significant for anemia, myomectomy for uterine fibroids, and section 2 months ago. She presents to the ED today with right calf pain for 3 days duration. The pain is described as burning and constant. The pain is worse with ambulation and movement. She has taken Tylenol for pain but has had minimal relief. Patient admits to swelling and erythema of the right lower extremity. Patient denies any chest pain, shortness of breath, dizziness, fever, abdominal pain, or weakness. Patient also notes that she recently was administered a Depot shot for contraception and this is a primary concern for a DVT in her leg. Social Hx: Denies smoking, ETOH, or recreational drug use. Allergies: Oxycodone HCl, Medications: Iron, vitamins, Tylenol PMD: Dr. Slona international nurse: Dr. Hill GENERAL/CONSTITUTIONAL: No fever or chills. No weakness. No weight change. HEAD, EYES, EARS, NOSE AND THROAT: No change in vision. No ear pain or discharge. No sore throat. CARDIOVASCULAR: No chest pain or shortness of breath. RESPIRATORY: No cough, wheezing, or hemoptysis. GASTROINTESTINAL: No nausea, vomiting, diarrhea or constipation. No rectal bleeding. GENITOURINARY:No dysuria, frequency, or change in urination. MUSCULOSKELETAL: + RLE swelling. No joint or muscle pain. No neck or back pain. SKIN AND BREASTS: No rash or easy bruising. NEUROLOGIC: +Lightheadedness. No headache,loss of consciousness, or loss of sensation. PSYCHIATRIC: No depression or anxiety. ENDOCRINE: No increased thirst. No abnormal weight change. HEMATOLOGIC/LYMPHATIC: + Hx of anemia, No easy bleeding, or history of blood clots. ALLERGIC/IMMUNOLOGIC: No hives or skin allergy. No latex allergy. GENERAL: The patient is awake, alert, and fully oriented, in mild distress. HEAD: Normal with no signs of trauma. EYES: [Pupils equal, round and reactive to light, extraocular movements intact, sclera anicteric, conjunctiva clear.] NECK: [Normal range of motion, supple without lymphadenopathy, JVD, or masses.] LUNGS: [Breath sounds equal, clear to auscultation bilaterally. No wheezes, and no crackles.] HEART: [Regular rate and rhythm, normal S1 and S2 without murmur, rub.] ABDOMEN: [Soft, nontender, normoactive bowel sounds. No guarding, no rebound. No masses. Healed scars noted without erythema. EXTREMITIES: + Edema in RLE. Tender to palpation in the right calf. Decreased range of motion due to pain. No clubbing or cyanosis. No cords, erythema. Normal Pedal pulses. NEUROLOGICAL: [Cranial nerves II through XII grossly intact. Normal speech, normal gait.] PSYCH: [Normal mood, normal affect.] SKIN: [Warm, Dry, normal turgor, no rashes or lesions noted.] <Yaya Hanna - Last Filed: 03/10/18 01:28> - General Chief Complaint: Pain, Acute Stated Complaint: RIGHT CALF PAIN Time Seen by Provider: 03/09/18 23:29 Past History <Zainab Alicia - Last Filed: 03/10/18 01:16> - Past Medical History Anemia: No Asthma: No Cancer: No Cardiac Disorders: No CVA: No COPD: No CHF: No DVT: No Dementia: No Diabetes: No GI Disorders: No Disorders: No HTN: No Hypercholesterolemia: No Liver Disease: No Seizures: No Thyroid Disease: No - Immunization History Immunization Up to Date: Yes - Suicide/Smoking/Psychosocial Hx Smoking History: Never smoked Have you smoked in the past 12 months: No Information on smoking cessation initiated: No Hx Alcohol Use: No Drug/Substance Use Hx: No Substance Use Type: None Hx Substance Use Treatment: No <Yaya Hanna - Last Filed: 03/10/18 01:28> - Past Medical History Allergies/Adverse Reactions: Allergies Allergy/AdvReac Type Severity Reaction Status Date / Time oxycodone HCl Allergy Mild Itching Verified 12/26/17 09:01 [From Roxicodone] acetaminophen [From Percocet] Allergy Verified 03/09/18 22:03 mushroom Allergy Verified 12/26/17 09:01 oxycodone [From Percocet] Allergy Verified 03/09/18 22:03 Home Medications: Ambulatory Orders Ferrous Sulfate 325 mg PO DAILY 12/26/17 Vitamins (Sjr) - 1 tab PO DAILY 12/26/17 HYDROmorphone [Dilaudid -] 4 mg PO Q8H #21 tablet MDD 2 12/30/17 Shark Liver Oil/Angie Butter [Hemorrhoidal Suppositories] 1 each RC DAILY PRN # 20 supp.rect 12/30/17 *Physical Exam - Vital Signs Last Vital Signs Temp Pulse Resp BP Pulse Ox 98.4 F 67 20 101/58 98 03/09/18 22:04 03/09/18 22:04 03/09/18 22:04 03/09/18 22:04 03/09/18 22:04 <Zainab Alicia - Last Filed: 03/10/18 01:16> - Vital Signs Last Vital Signs Temp Pulse Resp BP Pulse Ox 98.4 F 67 20 101/58 98 03/09/18 22:04 03/09/18 22:04 03/09/18 22:04 03/09/18 22:04 03/09/18 22:04 <Yaya Hanna - Last Filed: 03/10/18 01:28> ED Treatment Course - RADIOLOGY Radiology Studies Ordered: Category Date Time Status DUPLEX VASCUL US-1 LEG [US] Stat Ultrasound 03/09/18 23:38 Ordered <Yaya Hanna - Last Filed: 03/10/18 01:28> Medical Decision Making - Medical Decision Making 03/10/18 01:11 Patient Name: YARY TYSON THIS IS A PRELIMINARY REPORT FROM [facility] DATE OF SERVICE: 2018-03-10 00:30:42 IMAGES: 40 EXAM: Right lower extremity duplex venous ultrasound HISTORY: Right leg and calf pain COMPARISON: None. FINDINGS: Negative for right lower extremity deep venous thrombosis. THIS DOCUMENT HAS BEEN ELECTRONICALLY SIGNED <Zainab Alicia - Last Filed: 03/10/18 01:16> - Medical Decision Making 03/09/18 23:39 Assessment: Yary Tyson is a 32 year old female with a history significant for anemia, myomectomy for uterine fibroids, and section 2 months ago. She has new onset right lower extremity pain following recent section and Depot contraception injection. She has concerns for DVT. Plan: - Ultrasound doppler of right lower extremity to rule out DVT. If positive, will perform further workup. - Offered analgesia for pain but patient declined. Dr. Alicia discussed Ultrasound of report with the patient 03/10/18 01:27 I discussed the physical exam findings, ancillary test results and final diagnoses with the patient. I answered all of the patient's questions. The patient was satisfied with the care received and felt comfortable with the discharge plan and treatment plan. The Patient agrees to follow up with the primary care physician within 24-72 hours. <Yaya Hanna - Last Filed: 03/10/18 01:28> *DC/Admit/Observation/Transfer - Discharge Dispostion Decision to Admit order: No <Zainab Alicia - Last Filed: 03/10/18 01:16> <Yaya Hanna - Last Filed: 03/10/18 01:28> Diagnosis at time of Disposition: Leg pain Qualifiers: Laterality: right Qualified Code(s): M79.604 - Pain in right leg - Discharge Dispostion Disposition: HOME Condition at time of disposition: Stable - Referrals Referrals: Aaron Jolley MD [Primary Care Provider] - - Patient Instructions Printed Discharge Instructions: DI for Leg Pain - Post Discharge Activity Forms/Work/School Notes: Back to Work
[2018-03-10 02:21] VITALS: BP 128/70; PULSE 71; TEMP 98.2
== END 2018-03-10 01:35 | disposition home or self-care (01) ==
LOC: JER 21:49
DX: M79.604 Pain in right leg (principal); D64.9 Anemia, unspecified; Z98.890 Other specified postprocedural states
CPT/HCPCS: 93971-TC; 99282-25

== ENCOUNTER 2019-02-21 08:51 | Emergency (ER) | payer OTHER ==
[2019-02-21 09:02] VITALS: BMI 31.3
[2019-02-21] MEDS ORDERED: KETOROLAC TROMETHAMINE 60 MG/2 ML VIAL IM ONE (09:23)
[2019-02-21] MEDS ORDERED: KETOROLAC TROMETHAMINE 60 MG/2 ML VIAL ONE (09:28)
--- NOTE | 2019-02-21 10:24 | PDOC ---
History of Present Illness - General Chief Complaint: Pain Stated Complaint: LT SIDE RIB PAIN Time Seen by Provider: 02/21/19 09:07 History Source: Patient Exam Limitations: No Limitations - History of Present Illness Initial Comments: 02/21/19 09:39 33 yr old female presents to ED with complaints of left sided chest pain worsened with deep breathing, moving or coughing for the past 2 days. Patient states has taken Motrin with moderate effect but since symptoms did not improve completely she decided come to the ER. Patient states no recent injury recent illness, or discomfort while at rest. 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 Patient denies palpitations, dizziness, nausea, abdominal pain, rash, or recent travel. Timing/Duration: intermittent Severity: mild Associated Symptoms: reports: denies symptoms. denies: shortness of breath (at rest) Past History - Travel Traveled outside of the country in the last 30 days: No Close contact w/someone who was outside of country & ill: No - Past Medical History Allergies/Adverse Reactions: Allergies Allergy/AdvReac Type Severity Reaction Status Date / Time oxycodone HCl Allergy Mild Itching Verified 02/21/19 08:55 [From Roxicodone] acetaminophen [From Percocet] Allergy Verified 02/21/19 08:55 mushroom Allergy Verified 02/21/19 08:55 oxycodone [From Percocet] Allergy Verified 02/21/19 08:55 Home Medications: Ambulatory Orders Naproxen [Naprosyn -] 375 mg PO BID PRN #20 tablet 02/21/19 Anemia: No Asthma: No Cancer: No Cardiac Disorders: No CVA: No COPD: No CHF: No DVT: No Dementia: No Diabetes: No GI Disorders: No Disorders: No HTN: No Hypercholesterolemia: No Liver Disease: No Seizures: No Thyroid Disease: No - Immunization History Immunization Up to Date: Yes - Suicide/Smoking/Psychosocial Hx Smoking History: Never smoked Have you smoked in the past 12 months: No Information on smoking cessation initiated: No Hx Alcohol Use: No Drug/Substance Use Hx: No Substance Use Type: None Hx Substance Use Treatment: No Patient Lives Alone: No Lives with/in: spouse/SO Review of Systems - Review of Systems Able to Perform ROS?: No Is the patient limited [place] proficient: No Constitutional: No: Symptoms Reported HEENTM: No: Symptoms Reported Respiratory: No: Symptoms reported Cardiac (ROS): No: Symptoms Reported ABD/GI: No: Symptoms Reported : No: Symptoms Reported Musculoskeletal: Yes: Muscle Pain Integumentary: No: Symptoms Reported Neurological: No: Symptoms reported Endocrine: No: Symptoms Reported Hematologic/Lymphatic: No: Symptoms Reported *Physical Exam - Vital Signs Last Vital Signs Temp Pulse Resp BP Pulse Ox 98.4 F 73 18 114/64 97 02/21/19 08:55 02/21/19 08:55 02/21/19 08:55 02/21/19 08:55 02/21/19 08:55 - Physical Exam General Appearance: Yes: Nourished, Appropriately Dressed. No: Apparent Distress Neck: positive: Supple Respiratory/Chest: positive: Chest Tender (left 10th rib anteriorly from sternum to anterior aspect extending lateral of midclavicular line), Lungs Clear , Normal Breath Sounds. negative: Respiratory Distress, Accessory Muscle Use Cardiovascular: positive: Regular Rhythm, Regular Rate. negative: Murmur Gastrointestinal/Abdominal: positive: Soft. negative: Tenderness Integumentary: positive: Normal Color, Warm, Moist Neurologic: positive: Normal Mood/Affect, Motor Strength 5/5 ED Treatment Course - RADIOLOGY Radiology Studies Ordered: Category Date Time Status RIBS-LEFT SIDE [RAD] Stat Radiology 02/21/19 09:23 Ordered Medical Decision Making - Medical Decision Making 02/21/19 09:48 Chief complaint: Patient with intermittent left-sided rib pain worsened with deep breathing and movement along with coughing for the past 2-3 days. Patient took Motrin moderate relief was and symptoms continued she decided come to the ER. No other complaints. Exam. Patient with reproducible left-sided rib pain over the 10th rib without other acute findings. Plan: Toradol IM along with rib x-ray 02/21/19 10:49 The patient states feeling better after receiving Toradol. We'll discharge patient home with Naprosyn with recommendations to apply splinting to area and if symptoms worsen to return to the ED *DC/Admit/Observation/Transfer Diagnosis at time of Disposition: Muscle strain of chest wall - Discharge Dispostion Disposition: HOME Condition at time of disposition: Improved - Prescriptions Prescriptions: Naproxen [Naprosyn -] 375 mg PO BID PRN #20 tablet PRN Reason: Pain - Referrals Referrals: Aaron Jolley MD [Primary Care Provider] - - Patient Instructions Printed Discharge Instructions: DI for Muscle Strain Additional Instructions: At this time your chest x-ray was negative. I recommend taking Naprosyn for discomfort and splinting area when coughing or moving to alleviate discomfort - Post Discharge Activity
[2019-02-21 10:45] VITALS: BP 111/65; PULSE 62; TEMP 99
== END 2019-02-21 10:50 | disposition home or self-care (01) ==
LOC: JER 08:51
PROC: 3E0233Z Introduction of Anti-inflammatory into Muscle, Percutaneous Approach (ICD-10-PCS; principal; 2019-02-21)
DX: S29.011A Strain of muscle and tendon of front wall of thorax, initial encounter (principal); X58.XXXA Exposure to other specified factors, initial encounter; Y93.89 Activity, other specified; Y92.89 Other specified places as the place of occurrence of the external cause; Y99.8 Other external cause status
CPT/HCPCS: 71101-TC-LT-FY; 99282-25

== ENCOUNTER 2019-10-17 17:44 | Emergency (ER) | payer OTHER ==
[2019-10-17 17:55] VITALS: BMI 10.3
[2019-10-17] MEDS ORDERED: ACETAMINOPHEN 1000 MG/100 ML VIAL (NON FORMULARY) IVPB ONE (18:22)
[2019-10-17] MEDS ORDERED: SODIUM CHLORIDE 1,000 ML IV STA (18:22)
--- NOTE | 2019-10-17 18:25 | PDOC ---
History of Present Illness - General Chief Complaint: Chest Pain Stated Complaint: CHEST PAIN/LT SIDE PAIN History Source: Patient Exam Limitations: No Limitations - History of Present Illness Initial Comments: 34-year-old female with no past medical history presented to the emergency department for chest pain since last night. Patient reported her pain begins at the left side of her sternum and wraps around the left side of her chest, constant, aggravated by movement and inspiration, alleviated by rest, dull in character. Patient denied recent heavy lifting, injury, fall, rash, fever, recent illnesses, shortness of breath, coughing, lightheadedness, lower extremity swelling, calf pain, or mode use, hemoptysis, recent travel, history of malignancy, history of DVT or PE. Patient reported the only associated symptom is bilateral arm weakness, which she has been feeling for the past four days. She reported she made an appointment for the arm weakness with her primary care doctor, but when she began to chest pain she decided to come to the [facility] department. She reported she had her hormone IUD removed around three or four months ago, currently using no form of protection while sexually active. She denied family history of myocardial infarction. She reported she took Motrin 600 mg last night and this morning with no relief of her symptoms. ROS General: denied fever, chills, generalized weakness. HEENT: denied sore throat, rhinorrhea, ear pain. Cardiovascular: admitted to chest pain. denied palpitations, syncope, diaphoresis. Respiratory: denied shortness of breath, cough, sputum production, hemoptysis. Gastrointestinal: denied abdominal pain, nausea, vomiting, diarrhea, constipati on, blood in stool. Genitourinary: denied dysuria, increased urinary frequency, hematuria, urinary i ncontinence, flank pain. Back: denied back pain. Musculoskeletal: denied joint pain, muscle pain, joint swelling. Neurological: admitted to weakness. denied headache, dizziness, numbness, tingling. Integumentary: denied rash, laceration, abrasion. Hematologic/Lymphatic: denied bruising or bleeding. PE Constitutional: Well-nourished, Well-developed, appearing stated age. HEENT: head is normocephalic, atraumatic. EOMI. PERRLA. Neck: supple. Full ROM. Cardiovascular: regular heart rhythm. Normal S1 and S2. no murmurs. no pericardial friction rub. Chest: no rash. mild tenderness to palpation of left anterior chest wall. Respiratory: clear to auscultation bilaterally. no crackles, rhonchi or wheezing. no stridor. Gastrointestinal: soft, flat, nontender. normal bowel sounds. no rebound, gu arding, or masses. Extremities: peripheral pulses intact and equal. no lower extremity edema noted. Neurological: CN 2-12 grossly intact. moves all four extremities. 5/5 strength bilateral upper extremities. Psych: awake, alert, oriented x3. follows commands. answers questions appropriately. Past History - Past Medical History Allergies/Adverse Reactions: Allergies Allergy/AdvReac Type Severity Reaction Status Date / Time oxycodone HCl Allergy Mild Itching Verified 10/17/19 17:52 [From Roxicodone] acetaminophen [From Percocet] Allergy Verified 10/17/19 17:52 mushroom Allergy Verified 10/17/19 17:52 oxycodone [From Percocet] Allergy Verified 10/17/19 17:52 Home Medications: Ambulatory Orders NK [No Known Home Medication] 10/17/19 *Physical Exam - Vital Signs Last Vital Signs Temp Pulse Resp BP Pulse Ox 97.4 F L 66 18 122/66 100 10/17/19 17:52 10/17/19 17:52 10/17/19 17:52 10/17/19 17:52 10/17/19 17:52 Heart Score/ECG Review - History History: Slightly suspicious - Electrocardiogram EKG: Normal - Age Age: </= 45 - Risk Factors Based on the list above the patient has:: No risk factors known - Troponin Troponin: </= normal limit - Score Heart Score - Total: 0 ED Treatment Course - LABORATORY CBC & Chemistry Diagram: 10/17/19 19:00 10/17/19 19:00 - RADIOLOGY Radiology Studies Ordered: Category Date Time Status CHEST PA & LAT [RAD] Stat Radiology 10/17/19 18:21 Ordered Medical Decision Making - Medical Decision Making 34 year old female with above PMH presented to ED for chest pain since last night associated with bilateral arm weakness. Initial Vital Signs Temp Pulse Resp BP Pulse Ox 97.4 F L 66 18 122/66 100 10/17/19 17:52 10/17/19 17:52 10/17/19 17:52 10/17/19 17:52 10/17/19 17:52 Afebrile. No tachycardia. No tachypnea. No hypotension. No hypoxia on room air. BP Left arm taken by me: 111/77 BP Right arm taken by me: 107/66 EKG performed at 1802: rate 55, regular rhythm, normal axis, normal intervals, QTc 403, flipped T V1/V2, no acute ST changes. CXR report: Karl Cadena Name: [facility]IOLOG[facility] Phys: Rocio Pruitt RESIDENT : 1985 Age: 34 Sex: F [facility] Acct: [id number] Loc: [address] Exam Date: 10/17/19 [id number] EXAM#: TYPE/EXAM: RESULT: [id number] RAD/CHEST X-RAY PORTABLE* Chest X-Ray: Indication: Left-sided chest pain Prior: None Procedure: Single view of the chest is performed. Findings: No osseous abnormalities are identified. Cardiac silhouette is within normal limits. Mediastinum is within normal limits with no evidence of widening. Aortic knob and descending aorta are well defined. There is no focal infiltrate or pleural effusion. No pneumothorax or pulmonary contusion is identified. IMPRESSION: No active pulmonary disease. Lester Coughlin M.D. Diplomate, [place] Board of Radiology CAQ, Neuroradiology CAQ, Interventional Radiology 10/17/19 20:23 Laboratory Last Values WBC 4.4 K/mm3 (4.0-10.0) 10/17/19 19:00 RBC 4.48 M/mm3 (3.60-5.2) 10/17/19 19:00 Hgb 12.5 GM/dL (10.7-15.3) 10/17/19 19:00 Hct 37.9 % (32.4-45.2) D 10/17/19 19:00 MCV 84.6 fl (80-96) 10/17/19 19:00 MCH 27.8 pg (25.7-33.7) 10/17/19 19:00 MCHC 32.9 g/dl (32.0-36.0) 10/17/19 19:00 RDW 13.8 % (11.6-15.6) 10/17/19 19:00 Plt Count 169 K/MM3 (134-434) 10/17/19 19:00 MPV 10.8 fl (7.5-11.1) D 10/17/19 19:00 Absolute Neuts (auto) 2.2 K/mm3 (1.5-8.0) 10/17/19 19:00 Neutrophils % 50.9 % (42.8-82.8) D 10/17/19 19:00 Lymphocytes % 39.5 % (8-40) D 10/17/19 19:00 Monocytes % 5.6 % (3.8-10.2) 10/17/19 19:00 Eosinophils % 2.7 % (0-4.5) 10/17/19 19:00 Basophils % 1.3 % (0-2.0) 10/17/19 19:00 Nucleated RBC % 0 % (0-0) 10/17/19 19:00 PT with INR 11.20 SEC (9.7-13.0) 10/17/19 19:00 INR 0.95 (0.83-1.09) 10/17/19 19:00 PTT (Actin FS) 35.1 SECONDS (25.2-36.5) 10/17/19 19:00 Sodium 140 mmol/L (136-145) 10/17/19 19:00 Potassium 3.8 mmol/L (3.5-5.1) 10/17/19 19:00 Chloride 106 mmol/L (98-107) 10/17/19 19:00 Carbon Dioxide 27 mmol/L (21-32) 10/17/19 19:00 Anion Gap 7 MMOL/L (8-16) L 10/17/19 19:00 BUN 15.3 mg/dL (7-18) 10/17/19 19:00 Creatinine 0.8 mg/dL (0.55-1.3) 10/17/19 19:00 Est GFR (CKD-EPI)AfAm 110.70 10/17/19 19:00 Est GFR (CKD-EPI)NonAf 95.52 10/17/19 19:00 Random Glucose 83 mg/dL (74-106) 10/17/19 19:00 Calcium 8.9 mg/dL (8.5-10.1) 10/17/19 19:00 Magnesium 2.1 mg/dL (1.8-2.4) 10/17/19 19:00 Total Bilirubin 0.3 mg/dL (0.2-1) 10/17/19 19:00 AST 17 U/L (15-37) 10/17/19 19:00 ALT 21 U/L (13-61) 10/17/19 19:00 Alkaline Phosphatase 65 U/L (45-117) 10/17/19 19:00 Troponin I < 0.02 ng/ml (0.00-0.05) 10/17/19 19:00 Total Protein 7.1 g/dl (6.4-8.2) 10/17/19 19:00 Albumin 3.9 g/dl (3.4-5.0) 10/17/19 19:00 Beta HCG, Quant < 1.0 mIU/ml 10/17/19 19:00 No leukocytosis. No anemia. No SYED. No transaminitis. Troponin undetectable. Negative serum . Pt reported no improvement of pain. Pt reported last time she was in the ED she received a shot of Toradol that worked well for her, she requested to have the same. Medications ordered: Toradol 60 mg IM once 10/17/19 21:09 Pt reported much improvement of symptoms. Pt discharged. Discharge - Discharge Information Problems reviewed: Yes Clinical Impression/Diagnosis: Chest pain Condition: Improved Disposition: HOME - Admission No - Follow up/Referral Referrals: Aaron Jolley MD [Primary Care Provider] - - Patient Discharge Instructions Patient Printed Discharge Instructions: DI for Atypical Chest Pain Additional Instructions: Follow up with your primary care doctor within 3 days regarding your ER visit. Your care is not complete until you follow up. Bring all paperwork given to you today to your appointment. Take Ibuprofen 600 mg every 8 hours as needed for pain. Buy over the counter. Take with food as this medicine can irritate your stomach. Take Tylenol 1000 mg every 8 hours as needed for pain. Buy over the counter. Do not take more than 4000 mg in 24 hours, as this is toxic. Tylenol and Ibuprofen are not the same medication and can be safely used together. Do not perform heavy lifting or exercise for the next 7 days or until your s ymptoms resolve. Return to the Emergency Department for increasing pain, vomiting, fever, lighthe adedness, shortness of breath, severe back pain, severe abdominal pain, passing out, or any other new, worsening or concerning factors. - Post Discharge Activity Work/Back to School Note: Back to Work
[2019-10-17] MEDS ORDERED: KETOROLAC TROMETHAMINE 30 MG/1 ML VIAL IVPUSH ONE (18:37)
[2019-10-17] MEDS ORDERED: ACETAMINOPHEN INJECTION 100 ML IVPB ONE (18:59)
--- NOTE | 2019-10-17 19:13 | PDOC ---
Documentation entered by Maryjane Casarez SCRIBE, acting as scribe for Julieta Castellanos MD. Julieta Castellanos MD: This documentation has been prepared by the janiaibeChing Nirvannie, SCRIBE, under my direction and personally reviewed by me in its entirety. I confirm that the documentation accurately reflects all work, treatment, procedures, and medical decision making performed by me. Attending Attestation - Resident Resident Name: ZoyaRocio - ED Attending Attestation I have performed the following: I have examined & evaluated the patient, The case was reviewed & discussed with the resident, I agree w/resident's findings & plan, Exceptions are as noted - HPI HPI: 10/17/19 19:03 [id number] with no significant past medical history who presents to the ED with 2 days of left-sided constant, dull, pleuritic sternal chest pain that wraps around to the left side of the chest worsened with movement and alleviated with rest. Patient notes associated 4 days of bilateral upper extremity weakness which she has a pending appointment with her PCP to evaluate. She notes taking 600mg of Ibuprofen, without relief, prompting her arrival to the ED. Denies fever, chills, SOB, palpitation, dizziness, weakness, N, V, D, abdominal pain, bladder and bowel problems, leg swelling, No sick contacts or travel. No new changes in medications. Allergies: Oxycodone, Acetaminophen, Mushroom Past Medical History: None reported. Social history: Lives with family. No tobacco, ETOH or drug use. Surgical history: None reported. Meds: as documented in EMR PMD: Dr. Jolley - Physicial Exam PE: 10/17/19 18:57 NAD, well appearing, EOMI, PERRL, MMM, nl conjunctiva, anicteric; neck supple. lungs clear, RRR, no murmur, abdomen soft nontender. Back nontender. MARLEY x4, no focal neuro deficits. No peripheral edema. normal color for ethnicity, WWP. 10/17/19 19:32 - Medical Decision Making 10/17/19 19:09 Vital Signs Temp Pulse Resp BP Pulse Ox 97.4 F L 66 18 122/66 100 10/17/19 17:52 10/17/19 17:52 10/17/19 17:52 10/17/19 17:52 10/17/19 17:52 DDx chest pain: ACS, coronary vasospasm, NSTEMI, arrhythmia, unstable angina, PE, dissection, PUD, esophageal spasm, GERD, gastritis, costochondritis, pneumonia, pleurisy, pericarditis/myocarditis. dehydration, electrolyte/metabolic derangements. Considered but clinically doubt based on HPI and PE: Low suspicion for pulmonary embolism or dissection. perc neg so unlikely PE Chest pain negative: No evidence of ACS, pericarditis, myocarditis, pulmonary em bolism, pneumothorax, pneumonia, Zoster, or esophageal perforation. Historically not abrupt in onset, tearing or ripping, pulses symmetric, no evidence of aortic dissection. VS reviewed, wnl. normal HR, normal sats and no respiratory distress EKG sinus bradycardia, no interval abnormalities, narrow QRS, ST and T wave segments and morphology normal. Nonspecific T wave abnormalities, unchanged from prior Chest pain HEART score zero which denotes Low risk and probability for ACS, less than 1.7% risk for MACE at 4-6 wks labs and lytes wnl trop is neg, reassuring. one is sufficient as last night the episode started given analgesia here, reassess feels improved after the toradol chest pain improved 10/17/19 19:32 Pt to be discharged in stable condition. Patient made aware of clinical impre ssion, treatment recommendations and disposition plan, return precautions discussed (including but not limited to new or persistent/worsening symptoms, pain, fevers, or signs of infection, chest pain, respiratory distress, inability to tolerate oral intake, dehydration, syncope, or neurologic changes). Follow up with PMD as recommended, follow up information provided, take medications as instructed for duration of time. continue with supportive care, avoid triggers and precipitants. All questions answered to patient's satisfaction and expressed understanding and comfort with this. At the time of discharge, the patient is alert, clinically improved, tolerating po and verbalizes understanding of instructions, satisfied with the care received and felt comfortable with the plan. Patient does not suffer from an acute life-threatening medical condition at this time and is safe for outpatient follow-up. 10/17/19 21:19 Heart Score/ECG Review - History History: Slightly suspicious - Electrocardiogram EKG: Normal - Age Age: </= 45 - Risk Factors Based on the list above the patient has:: No risk factors known - Troponin Troponin: </= normal limit - Score Heart Score - Total: 0 #1 ECG reviewed & interpreted by me at: 18:05 General ECG Interpretation: Sinus Rhythm, Normal Intervals 10/17/19 19:08 EKG sinus bradycardia 55 bpm, no interval abnormalities, narrow QRS, ST and T wave segments and morphology normal. Nonspecific T wave abnormalities
[2019-10-17 19:20] LABS: BASO % 1.3 % (0-2.0); EOS % 2.7 % (0-4.5); HEMATOCRIT 37.9 % (32.4-45.2); HEMOGLOBIN 12.5 GM/dL (10.7-15.3); LYMPH % 39.5 % (8-40); MCH 27.8 pg (25.7-33.7); MCHC 32.9 g/dl (32.0-36.0); MEAN CELL VOLUME 84.6 fl (80-96); MEAN PLT VOLUME 10.8 fl (7.5-11.1); MONO % 5.6 % (3.8-10.2); NEUT % 50.9 % (42.8-82.8); PLATELET COUNT 169 K/MM3 (134-434); RBC 4.48 M/mm3 (3.60-5.2); RDW 13.8 % (11.6-15.6); WHITE BLOOD COUNT 4.4 K/mm3 (4.0-10.0)
[2019-10-17 19:34] LABS: INR 0.95 (0.83-1.09); PROTHROMBIN TIME (PATIENT) 11.2 SEC (9.7-13.0)
[2019-10-17 19:37] LABS: ACTIVATED PTT 35.1 SECONDS (25.2-36.5)
[2019-10-17 20:14] LABS: ALBUMIN 3.9 g/dl (3.4-5.0); ALK PHOS 65 U/L (45-117); ANION GAP 7 MMOL/L (8-16); BILIRUBIN,TOTAL 0.3 mg/dL (0.2-1); BLOOD UREA NITROGEN 15.3 mg/dL (7-18); CALCIUM 8.9 mg/dL (8.5-10.1); CHLORIDE 106 mmol/L (98-107); CO2 27 mmol/L (21-32); CREATININE 0.8 mg/dL (0.55-1.3); GLUCOSE,RANDOM 83 mg/dL (74-106); MAGNESIUM 2.1 mg/dL (1.8-2.4); POTASSIUM 3.8 mmol/L (3.5-5.1); SGOT/AST 17 U/L (15-37); SGPT/ALT 21 U/L (13-61); SODIUM 140 mmol/L (136-145); TOT PROT 7.1 g/dl (6.4-8.2)
[2019-10-17] MEDS ORDERED: KETOROLAC TROMETHAMINE 60 MG/2 ML VIAL IM ONE (20:23)
[2019-10-17] MEDS ORDERED: KETOROLAC TROMETHAMINE 60 MG/2 ML VIAL ONE (20:25)
[2019-10-17 21:23] VITALS: BP 128/68; PULSE 88; TEMP 98.5
--- NOTE | 2019-10-19 09:36 | EKG ---
Test Reason : Blood Pressure : / mmHG Vent. Rate : 055 BPM Atrial Rate : 055 BPM P-R Int : 152 ms QRS Dur : 072 ms QT Int : 422 ms P-R-T Axes : 049 043 048 degrees QTc Int : 403 ms SINUS BRADYCARDIA ABNORMAL ECG WHEN COMPARED WITH ECG OF 23-MAR-2016 14:17, NO SIGNIFICANT CHANGE WAS FOUND Confirmed by Neymar Cunningham ([id number]) on 10/19/2019 9:36:12 AM Referred By: Confirmed By:Neymar Cunningham
== END 2019-10-17 21:55 | disposition home or self-care (01) ==
LOC: JER 17:44
PROC: 3E0337Z Introduction of Electrolytic and Water Balance Substance into Peripheral Vein, Percutaneous Approach (ICD-10-PCS; principal; 2019-10-17)
PROC: 3E033NZ Introduction of Analgesics, Hypnotics, Sedatives into Peripheral Vein, Percutaneous Approach (ICD-10-PCS; 2019-10-17)
PROC: 3E0233Z Introduction of Anti-inflammatory into Muscle, Percutaneous Approach (ICD-10-PCS; 2019-10-17)
DX: R07.9 Chest pain, unspecified (principal)
CPT/HCPCS: 36415; 71045-TC-FY; 80053; 83735; 84484; 84702; 85025; 85610; 85730; 93005; 93010; 99285-25; J0131; J7030

== ENCOUNTER 2020-10-13 08:32 | Inpatient (IN) | payer OTHER ==
[2020-10-13 09:21] VITALS: BMI 30.7
[2020-10-13] MEDS ORDERED: OXYTOCIN 20 UNITS in 0.9% NS 20 UNIT/1,000 ML INFUS.BAG IV ONE (09:57)
[2020-10-13] MEDS ORDERED: ePHEDrine SULFATE 50 MG/1 ML AMPULE ONE (10:03)
[2020-10-13] MEDS ORDERED: KETOROLAC TROMETHAMINE 30 MG/1 ML VIAL ONE (10:38)
[2020-10-13] MEDS ORDERED: KETAMINE HCL 500 MG/10 ML VIAL ONE (10:43)
[2020-10-13] MEDS ORDERED: MIDAZOLAM HCL 2 MG/2 ML SINGLE DOSE VIAL ONE (10:43)
[2020-10-13] MEDS ORDERED: PHYTONADIONE NEONATAL 1 MG/0.5 ML AMP IM ONE (10:50)
[2020-10-13] MEDS ORDERED: ERYTHROMYCIN 0.5% OPHTHALMIC OINTMENT 3.5 GM TUBE OU ONE (10:50)
[2020-10-13] MEDS ORDERED: METOCLOPRAMIDE HCL INJECTION 10 MG/2 ML VIAL ONE (10:59)
[2020-10-13] MEDS ORDERED: SODIUM CHLORIDE 0.9% P/F 10 ML VIAL IJ ONE (10:59)
[2020-10-13] MEDS ORDERED: ceFAZolin SODIUM 1 GM VIAL ONE (10:59)
[2020-10-13] MEDS ORDERED: DEXAMETHASONE SOD PHOSPHATE 4 MG/1 ML VIAL ONE (10:59)
[2020-10-13] MEDS ORDERED: ONDANSETRON 4 MG/2 ML VIAL ONE (10:59)
[2020-10-13] MEDS ORDERED: OXYTOCIN 10 UNITS/ML VIAL ONE (11:00)
[2020-10-13 11:41] LABS: CORD BASE EXCESS -3.5 mmol/L (0-2); CORD HCO3 24.5 mmHg (20-29); CORD pH 7.258 (7.14-7.44)
[2020-10-13 11:44] LABS: CORD BASE EXCESS -3.2 mmol/L (0-2); CORD HCO3 22.3 mmHg (20-29); CORD PCO2 41.9 mmHg (30-78); CORD pH 7.344 (7.14-7.44)
[2020-10-13] MEDS ORDERED: BENZOCAINE 28 GM HEMORRHOIDAL OINTMENT PR PRN (11:56)
[2020-10-13] MEDS ORDERED: BENZOCAINE 20% 57 GM BOTTLE TP PRN (11:56)
[2020-10-13] MEDS ORDERED: METHYLERGONOVINE MALEATE 0.2 MG/1 ML AMP IM PRN (11:56)
[2020-10-13] MEDS ORDERED: diphenhydrAMINE HCL 25 MG CAPSULE (FP) PO PRN (11:56)
[2020-10-13] MEDS ORDERED: WITCH HAZEL 50% (TUCKS) 40 PAD/JAR PAD TP PRN (11:56)
[2020-10-13] MEDS ORDERED: ELECTROLYTE-148 SOLN 1,000 ML IV SCH (12:00)
[2020-10-13] MEDS ORDERED: OXYTOCIN 20 UNITS in 0.9% NS 20 UNIT/1,000 ML INFUS.BAG IV SCH (12:15)
[2020-10-13] MEDS: IBUPROFEN 800 MG/8 ML IJ IVPB PRN (15:44)
[2020-10-14] MEDS: IBUPROFEN 800 MG/8 ML IJ IVPB PRN (02:38)
[2020-10-14 07:46] LABS: HEMATOCRIT 32.3 % (32.4-45.2); MCH 29.5 pg (25.7-33.7); MCHC 34.2 g/dl (32.0-36.0); MEAN CELL VOLUME 86.3 fl (80-96); MEAN PLT VOLUME 10.8 fl (7.5-11.1); PLATELET COUNT 148 K/MM3 (134-434); RBC 3.74 M/mm3 (3.60-5.2); RDW 13.9 % (11.6-15.6); WHITE BLOOD COUNT 7.8 K/mm3 (4.0-10.0)
[2020-10-14] MEDS: IBUPROFEN 600 MG TABLET (FP) PO PRN ×3 (08:18→21:08)
[2020-10-14] MEDS: SIMETHICONE 80 MG TAB.CHEW (FP) PO PRN ×2 (08:19→21:08)
[2020-10-14] MEDS: ACETAMINOPHEN 325 MG TABLET (FP) PO PRN ×3 (08:19→21:07)
[2020-10-14] MEDS ORDERED: BISACODYL 10 MG SUPP.RECT PR PRN (11:57)
[2020-10-14] MEDS ORDERED: MEPERIDINE HCL 50 MG TABLET PO PRN (11:59)
[2020-10-15] MEDS: IBUPROFEN 600 MG TABLET (FP) PO PRN ×2 (09:42→21:25)
[2020-10-15] MEDS: ACETAMINOPHEN 325 MG TABLET (FP) PO PRN ×2 (09:42→21:22)
[2020-10-15] MEDS: SIMETHICONE 80 MG TAB.CHEW (FP) PO PRN (09:42)
[2020-10-15] MEDS ORDERED: SENNOSIDES/DOCUSATE COMBO (SENNA PLUS) TABLET (UD) PO PRN (22:00)
[2020-10-16 08:24] LABS: HEMATOCRIT 32.3 % (32.4-45.2); HEMOGLOBIN 10.9 GM/dL (10.7-15.3); MCH 29.4 pg (25.7-33.7); MCHC 33.8 g/dl (32.0-36.0); MEAN CELL VOLUME 87.1 fl (80-96); MEAN PLT VOLUME 10.5 fl (7.5-11.1); PLATELET COUNT 151 K/MM3 (134-434); RBC 3.71 M/mm3 (3.60-5.2); RDW 14.1 % (11.6-15.6); WHITE BLOOD COUNT 4.3 K/mm3 (4.0-10.0)
[2020-10-16 09:30] VITALS: BP 109/71; PULSE 72; TEMP 98.1
== END 2020-10-16 11:05 | disposition home or self-care (01) | DRG 788 ==
LOC: JLDR 08:32 → J3W 13:14
PROVIDERS: ADMIT Obstetrics & Gynecology; ATTEND Obstetrics & Gynecology
PROC: 10D00Z1 Extraction of Products of Conception, Low, Open Approach (ICD-10-PCS; principal; 2020-10-13)
DX: O34.219 Maternal care for unspecified type scar from previous cesarean delivery (principal); Z3A.38 38 weeks gestation of pregnancy; Z37.0 Single live birth; Z87.19 Personal history of other diseases of the digestive system; Z86.2 Personal history of diseases of the blood and blood-forming organs and certain disorders involving the immune mechanism; Z98.890 Other specified postprocedural states
CPT/HCPCS: 36415; 36600; 82803; 85027; 88307-TC